=== PATIENT | female | born 1995 | race Caucasian/White ===

== ENCOUNTER 2021-03-24 14:05 | Inpatient (IN) | payer OTHER ==
[~2021-03-24] VITALS: Ht 167.6 cm; Wt 71.8 kg
[2021-03-24] MEDS ORDERED: NEWBORN KIT ONE (14:12)
[2021-03-24] MEDS ORDERED: LIDOCAINE 1%, 20ML ONE (14:13)
[2021-03-24] MEDS ORDERED: MISOPROSTOL 200 MCG TABLET ONE ×2 (14:13→21:27)
[2021-03-24] MEDS ORDERED: OXYTOCIN 30U/ 0.9% NaCL 500ML 500 ML ONE (14:13)
[2021-03-24] MEDS ORDERED: LACTATED RINGERS 1,000 ML IV SCH (14:30)
[2021-03-24] MEDS ORDERED: TERBUTALINE 1 MG/ML, 1ML IVPush PRN (14:30)
[2021-03-24] MEDS ORDERED: OXYTOCIN 30U/ 0.9% NaCL 500ML 500 ML IV ONE (14:30)
[2021-03-24] MEDS ORDERED: TERBUTALINE 1 MG/ML, 1ML SQ PRN (14:30)
[2021-03-24] MEDS ORDERED: ONDANSETRON 2MG/ML, 2ML IVPush PRN (14:30)
[2021-03-24] MEDS ORDERED: D5%-LACTATED RINGERS 1,000 ML IV SCH (14:30)
[2021-03-24 14:38] LABS: BASOPHILS % (AUTO) 1 % (0-1); EOSINOPHILS % (AUTO) 0 % (1-7); LYMPHOCYTES % (AUTO) 5 % (22-44); MEAN CORPUSCULAR HGB CONC 33.2 g/dL (32.4-35.8); MEAN PLATELET VOLUME 8.7 fL (7.4-10.4); MONOCYTES % (AUTO) 3 % (2-9); NEUTROPHILS % (AUTO) 92 % (42-75); PLATELET COUNT 271 x10^3/uL (130-400); RED BLOOD COUNT 4.85 x10^6/uL (3.82-5.3); RED CELL DISTRIBUTION WIDTH 15.7 % (9.6-15.2)
[2021-03-24 14:58] LABS: MD SCAN
[2021-03-24] MEDS ORDERED: PREN1TAB98 PO (15:11)
[2021-03-24] MEDS ORDERED: HYDROcodone/APAP 5/325 TABLET PO PRN (22:00)
[2021-03-24] MEDS ORDERED: OXYTOCIN 10 UNITS/ML, 1ML IM PRN (22:00)
[2021-03-24] MEDS ORDERED: CARBOPROST TROMETHAMINE 250 MCG/ML, 1ML IM PRN (22:00)
[2021-03-24] MEDS ORDERED: SIMETHICONE 80 MG CHEW TAB PO PRN (22:00)
[2021-03-24] MEDS ORDERED: MISOPROSTOL 200 MCG TABLET PR PRN (22:00)
[2021-03-24] MEDS ORDERED: ACETAMINOPHEN 325 MG TABLET PO PRN (22:00)
[2021-03-24] MEDS ORDERED: ONDANSETRON 2MG/ML, 2ML IV PRN (22:00)
[2021-03-24] MEDS ORDERED: METHYLERGONOVINE 0.2 MG/ML IM PRN (22:00)
[2021-03-24] MEDS: IBUPROFEN 600 MG TABLET PO PRN (22:30)
[2021-03-24] MEDS: OXYTOCIN 30U/ 0.9% NaCL 500ML 500 ML IV SCH (22:45)
[2021-03-24 23:45] VITALS: BP 123/85
[2021-03-24] MEDS: HYDROcodone/APAP 5/325 TABLET PO PRN (23:57)
[2021-03-25] MEDS ORDERED: MISOPROSTOL 200 MCG TABLET ONE (01:00)
[2021-03-25] MEDS ORDERED: METHYLERGONOVINE 0.2 MG/ML IM ONE (01:00)
[2021-03-25 04:30] VITALS: BP 113/75
[2021-03-25 05:42] LABS: BASOPHILS % (AUTO) 1 % (0-1); EOSINOPHILS % (AUTO) 0 % (1-7); LYMPHOCYTES % (AUTO) 10 % (22-44); MEAN CORPUSCULAR HEMOGLOBIN 26.7 pg (27.0-34.8); MEAN CORPUSCULAR HGB CONC 33.4 g/dL (32.4-35.8); MEAN PLATELET VOLUME 8.4 fL (7.4-10.4); MONOCYTES % (AUTO) 7 % (2-9); NEUTROPHILS % (AUTO) 83 % (42-75); PLATELET COUNT 233 x10^3/uL (130-400); RED CELL DISTRIBUTION WIDTH 15.4 % (9.6-15.2)
[2021-03-25 05:45] LABS: MD NO
[2021-03-25] MEDS: IBUPROFEN 600 MG TABLET PO PRN ×3 (06:06→19:22)
[2021-03-25] MEDS: OXYTOCIN 30U/ 0.9% NaCL 500ML 500 ML IV SCH ×2 (08:00→18:00)
[2021-03-25] MEDS: PRENATAL VIT/IRON/FA 1 EACH TABLET PO SCH (09:50)
[2021-03-25] MEDS: DOCUSATE 100 MG CAPSULE PO PRN ×2 (09:50→19:22)
[2021-03-25 11:33] VITALS: BP 120/78
[2021-03-25] MEDS ORDERED: RHOGAM FROM BLOOD BANK 1 NOTE EA IM/IV ONE (14:30)
[2021-03-25 16:15] VITALS: BP 124/76
[2021-03-25] MEDS: FERROUS GLUCONATE 324 MG TABLET PO SCH (16:36)
[2021-03-25 19:50] VITALS: BP 114/74
[2021-03-25] MEDS: HYDROcodone/APAP 5/325 TABLET PO PRN (21:03)
[2021-03-26] MEDS: OXYTOCIN 30U/ 0.9% NaCL 500ML 500 ML IV SCH (01:08)
[2021-03-26] MEDS: IBUPROFEN 600 MG TABLET PO PRN (06:30)
[2021-03-26 07:40] VITALS: BP 124/84
[2021-03-26] MEDS: PRENATAL VIT/IRON/FA 1 EACH TABLET PO SCH (07:46)
[2021-03-26] MEDS: FERROUS GLUCONATE 324 MG TABLET PO SCH (07:46)
[2021-03-26] MEDS: DOCUSATE 100 MG CAPSULE PO PRN (07:46)
[2021-03-26] MEDS ORDERED: IBUP-1222 PO (12:27)
[2021-03-26] MEDS ORDERED: SENN-52 PO (12:28)
[2021-03-26] MEDS ORDERED: HYDR-2214 PO (12:28)
[2021-03-26] MEDS ORDERED: FERR324T18 PO (12:29)
== END 2021-03-26 13:25 | disposition home or self-care (01) | DRG 807 ==
LOC: LDOP 14:05 → LDIP 14:30 → 2NW 23:37
PROVIDERS: ADMIT Obstetrics & Gynecology; ATTEND Obstetrics & Gynecology
PROC: 0KQM0ZZ Repair Perineum Muscle, Open Approach (ICD-10-PCS; principal; 2021-03-24)
PROC: 10D07Z6 Extraction of Products of Conception, Vacuum, Via Natural or Artificial Opening (ICD-10-PCS; 2021-03-24)
PROC: 3E0234Z Introduction of Serum, Toxoid and Vaccine into Muscle, Percutaneous Approach (ICD-10-PCS; 2021-03-25)
DX: O69.81X0 Labor and delivery complicated by cord around neck, without compression, not applicable or unspecified (principal); Z37.0 Single live birth; Z3A.38 38 weeks gestation of pregnancy; Z20.822 Contact with and (suspected) exposure to COVID-19; O70.1 Second degree perineal laceration during delivery
CPT/HCPCS: 36415; 85025; 85460; 85461; 86592; 86850; 86900; 87635; G0378; J2790; J2210; J2590; J7120